=== PATIENT | female | born 1960 ===

== ENCOUNTER 2017-07-31 16:52 | Emergency (ER) | payer OTHER ==
[~2017-07-31] VITALS: Ht 162.6 cm; Wt 102.1 kg
[2017-07-31] MEDS ORDERED: HYDR25TA4 PO (17:15)
[2017-07-31] MEDS ORDERED: IV NORMAL SALINE 1000 ML BAG IV ONE (17:15)
[2017-07-31] MEDS ORDERED: LISI-603 PO (17:15)
[2017-07-31] MEDS ORDERED: ACET325T53 PO (17:15)
[2017-07-31] MEDS ORDERED: DIPH25TA23 PO (17:15)
[2017-07-31] MEDS ORDERED: CALC600T12 PO (17:15)
[2017-07-31] MEDS ORDERED: IBUPROFEN 600 MG TABLET PO ONE (17:15)
[2017-07-31] MEDS ORDERED: ANAS1TAB PO (17:15)
[2017-07-31] MEDS ORDERED: ANAS1TAB8 PO (17:15)
[2017-07-31] MEDS ORDERED: CARV25TA2 PO (17:15)
[2017-07-31] MEDS ORDERED: ATOR40TA PO (17:15)
[2017-07-31] MEDS ORDERED: IBUPROFEN 600 MG TABLET ONE (17:27)
[2017-07-31 17:44] LABS: CREATININE 1.5 mg/dL (0.6-1.3); POTASSIUM 3.6 mmol/L (3.5-5.1)
[2017-07-31 17:45] LABS: BASOPHILS % (AUTO) 0.5 % (0.0-2.0); EOSINOPHILS % (AUTO) 0.2 % (0.0-7.0); HEMATOCRIT 35.7 % (37-47); HEMOGLOBIN 11.6 G/DL (12.0-16.0); LYMPHOCYTES # (AUTO) 0.7 K/UL (0.8-4.8); LYMPHOCYTES % (AUTO) 17.3 % (20.5-51.5); MEAN CORPUSCULAR HEMOGLOBIN 30.3 UUG (27.0-31.0); MEAN CORPUSCULAR HGB CONC 33 g/dL (32.0-37.0); MEAN CORPUSCULAR VOLUME 92.9 FL (81.0-99.0); MONOCYTES # (AUTO) 0.2 K/UL (0.1-1.30); MONOCYTES % (AUTO) 5.6 % (0.0-11.0); NEUTROPHILS # (AUTO) 2.9 K/UL (1.8-8.9); NEUTROPHILS % (AUTO) 76.4 % (38.5-71.5); PLATELET COUNT (AUTO) 160 K/UL (150-450); RED BLOOD CELL COUNT(AUTO) 3.84 MIL/UL (4.2-5.4); WHITE BLOOD COUNT (AUTO) 3.8 K/UL (4.0-11.2)
[2017-07-31 17:50] LABS: BILIRUBIN,DIRECT 0.1 mg/dL (0.0-0.2); BILIRUBIN,TOTAL 0.5 mg/dL (0.2-1.0); TOTAL PROTEIN, SERUM 7.3 g/dL (6.4-8.2)
[2017-07-31 18:26] LABS: BAND % (MANUAL) 8 % (0-10); NEUTROPHILS % (MANUAL) 71 % (42-75)
[2017-07-31 18:27] LABS: LYMPHOCYTES % (MANUAL) 18 % (20-40); MONOCYTES % (MANUAL) 3 % (2-10)
[2017-07-31 18:45] LABS: *BILIRUBIN,URIN NEGATIVE (NEGATIVE); *BLOOD, URINE 1+ (NEGATIVE); *CLARITY,URINE SLIGHTLY CLOUDY (CLEAR); *COLOR,URINE YELLOW (YELLOW); *KETONES,URINE NEGATIVE (NEGATIVE); *PROTEIN,URINE NEGATIVE (NEGATIVE); LEUKOCYTE ESTERASE ,URINE 1+ (NEGATIVE); NITRITE, URINE POSITIVE (NEGATIVE); PH,URINE 5.5 (5.0-8.0); UGLUCOSE NEGATIVE (NEGATIVE)
[2017-07-31 18:59] LABS: BACTERIA,URINE MODERATE /HPF (NONE SEEN); SQUAMOUS EPITHELIAL CELL,UR FEW /HPF (NONE SEEN)
[2017-07-31 19:11] VITALS: BP 111/66
--- NOTE | 2017-07-31 19:17 | NUR ---
Patient discharged to home in stable conditon. Written and verbal after care instructions given. Patient verbalizes understanding of instructions.pt walks in steady gait, says feels better, temp 99.0
== END 2017-07-31 19:20 | disposition home or self-care (01) ==
LOC: ER 16:53
DX: M79.7 Fibromyalgia (principal); N39.0 Urinary tract infection, site not specified; M79.1 Myalgia; R50.9 Fever, unspecified; Z59.0 Homelessness; Z85.3 Personal history of malignant neoplasm of breast; Z88.6 Allergy status to analgesic agent; I10 Essential (primary) hypertension
CPT/HCPCS: 36415; 71010; 83605; 85025; 85730; 87040; 87086; 87400; 93005; A4663; J7030